=== PATIENT | male | born 1955 | race Caucasian/White ===

== ENCOUNTER 2016-12-21 05:27 | Emergency (ER) | payer OTHER ==
[~2016-12-21] VITALS: Ht 170.2 cm; Wt 89.5 kg
[2016-12-21 05:39] VITALS: Ht 170.2 cm; Wt 89.5 kg
[2016-12-21] MEDS ORDERED: KETOROLAC 30 MG INJ IM STA (06:08)
--- NOTE | 2016-12-21 06:20 | ERD ---
ER Documentation Chief Complaint Date/Time DATE: 12/21/16 TIME: 06:14 Chief Complaint right shoulder pain r/t shoulder hit door,no deformity noted HPI This is a 61-year-old male presenting to the emergency department for shoulder pain after injury today. Patient states while at work, he was opening up a trailer and states the opening was "stuck" and upon forcing door open, he heard an audible pop and felt immediate pain. Now, patient has limited mobility to right shoulder. No elbow or wrist pain. Patient states he had a previous shoulder injury less than 1 year ago in March 2016. Patient is right-hand dominant. ROS All systems reviewed and are negative except as per history of present illness. Medications Home Meds Active Scripts Tramadol HCl (Tramadol HCl) 50 Mg Tablet, 50 MG PO Q4 Y for PAIN, #10 TAB Prov:JEAN BAKER NP 12/21/16 Ibuprofen* (Motrin*) 600 Mg Tab, 600 MG PO Q6, #20 TAB Prov:JEAN BAKER NP 12/21/16 Allergies Allergies: Coded Allergies: No Known Allergy (Unverified , 12/21/16) PMhx/Soc Hx Alcohol Use: No Hx Substance Use: No Hx Tobacco Use: No Smoking Status: Never smoker Physical Exam Vitals Vital Signs Date Time Temp Pulse Resp B/P Pulse Ox O2 Delivery O2 Flow Rate FiO2 12/21/16 05:39 97.6 63 18 177/99 96 Physical Exam Const: Alert, [id number]-[id number]-csyotidej Head: Atraumatic Eyes: Normal Conjunctiva ENT: Normal External Ears, Nose and Mouth. Neck: Full range of motion..~ No meningismus. Resp: Clear to auscultation bilaterally Cardio: Regular rate and rhythm, no murmurs Abd: Soft, non tender, non distended. Normal bowel sounds Skin: No petechiae or rashes Back: No midline or flank tenderness Ext: No obvious deformity. No crepitus with movement. There is pain with passive extension of right shoulder. Unable to actively extend right shoulder. Able to hyperextend right shoulder without difficulty. No limited mobility to right elbow or wrist. Capillary refill less than 3 seconds on right hand. Distal motor and neurovascular sensation fully intact. Neur: Awake and alert Psych: Normal Mood and Affect Results 24 hrs Current Medications Medications (Trade) Dose Ordered Sig/[place] Route PRN Reason Start Time Stop Time Status Last Admin Dose Admin Ketorolac Tromethamine (Toradol) 30 mg ONCE STAT IM 12/21/16 06:08 12/21/16 06:10 DC 12/21/16 06:16 Acetaminophen/ Hydrocodone Bitart ([place] (5/325)) 1 tab ONCE ONCE PO 12/21/16 08:00 12/21/16 08:01 Procedures/MDM [place] [address] Radiology Main Line: [phone] DIAGNOSTIC IMAGING REPORT Patient: CLARI BEASLEY : 1955 Age: 61 Sex: M MR #: [id number] DOS: 12/21/16 0608 Ordering MD: JEAN BAKER NP Location: [facility] Room/Bed: PROCEDURE: XR right Shoulder. CLINICAL INDICATION: Right shoulder pain, injury TECHNIQUE: 3 of the right shoulder are available for review. COMPARISON: None available FINDINGS: Subtle cortical irregularity at the greater tuberosity may reflect enthesopathic change though difficult to exclude nondisplaced fracture. Alignment is normal. Joint spaces are preserved. Soft tissues are grossly unremarkable. IMPRESSION: 1. Subtle cortical irregularity at the greater tuberosity may reflect enthesopathic change though difficult to exclude a nondisplaced fracture in the setting of recent trauma. Consider CT for further evaluation. [place] [address] Radiology Main Line: [phone] DIAGNOSTIC IMAGING REPORT Patient: CLAIR BEASLEY : 1955 Age: 61 Sex: M MR #: [id number] DOS: 12/21/16 0649 Ordering MD: JEAN BAKER NP Location: [facility] Room/Bed: PROCEDURE: CT of the right shoulder CLINICAL INDICATION: Right shoulder pain, trauma TECHNIQUE: Axial images through the right shoulder without IV contrast. Coronal and sagittal reformats. Images were interpreted at an independent PACS workstation. CTDI 50.84 mGy DLP 1229.58 mGy-cm One or more of the following dose reduction techniques were used: Automated exposure control Adjustment of the mA and / or kV according to patient size Use of iterative reconstruction technique. COMPARISON: Right shoulder radiographs performed same day FINDINGS: There is no CT evidence of acute fracture. There is cortical irregularity and cystic change at the greater tuberosity that likely reflects enthesopathic change. There is moderate acromioclavicular osteoarthrosis with subacromial enthesophyte and narrowing of the acromiohumeral distance. There is mild to moderate supraspinatus muscle atrophy. Rotator cuff insertions are not well assessed on CT but there is suspicion for a supraspinatus tendon tear. There is also a nonspecific calcification at the upper bicipital groove (axial 63). The adjacent biceps tendon is diminutive and may be torn but is not well assessed on CT. Limited evaluation of the right lung appears grossly unremarkable. There is no adenopathy. IMPRESSION: 1. The previously questioned cortical irregularity at the greater tuberosity reflects prominent enthesopathic change. No CT evidence of acute fracture para 2. Narrowing of the acromiohumeral distance with subacromial enthesopathy and mild to moderate supraspinatus muscle atrophy. Findings are suspicious for a high-grade supraspinatus tendon tear, suboptimally assessed on CT. Consider MRI for further evaluation as clinically warranted. MDM: 61 year old male presents to ER with shoulder pain after injury today. Patient states while at work, he was opening up a trailer and states the opening was "stuck" and upon forcing door open, he heard an audible pop and felt immediate pain. Patient given Toradol 30 mg IM while in the ED. x-ray right shoulder reviewed by radiologist as subtle cortical irregularity at the greater tuberosity may reflect enthesopathic change though difficult to exclude a nondisplaced fracture in the setting of recent trauma. A CT right upper extremity ordered. Patient has limited active range of motion. Good passive range of motion. Sensation is fully intact. No numbness or tingling. CT right upper extremity shows narrowing of the acromiohumeral distance with subacromial enthesopathy and mild to moderate supraspinatus muscle atrophy. Findings are suspicious for a high-grade supraspinatus tendon tear, suboptimally assessed on CT. Patient placed in ED sling. Remains neurovascularly intact. Patient remains stable. Patient states he is going to his on-site work physician to be evaluated. Patient given printed out copies of x-ray and CT scan examinations. Patient also provided with CD images of xray and CT examinations. Low suspicion for acute dislocation or fracture. Patient likely has rotator cuff tear. Patient is appropriate for outpatient management and will be given prescription for ibuprofen 600 mg #15 and tramadol 50 mg #10. Instructed patient to follow- up with primary care provider or orthopedic physician. Resources provided in discharge paperwork. Return to ED for any high fever, chest pain, difficulty breathing, shortness breath, wheezing, vomiting, diarrhea, abdominal pain or any new or worsening symptoms. Patient verbalizes understanding. All questions answered at discharge. Departure Diagnosis: Primary Impression: Shoulder injury Encounter type: initial encounter Laterality: right Qualified Code: S49.91XA - Shoulder injury, right, initial encounter Additional Impression: Supraspinatus tendon tear Encounter type: initial encounter Laterality: right Qualified Code: S46.811A - Supraspinatus tendon tear, right, initial encounter Condition: Stable JEAN BAKER NP Dec 21, 2016 06:20
--- NOTE | 2016-12-21 06:47 | RADRPT ---
PROCEDURE: XR right Shoulder. CLINICAL INDICATION: Right shoulder pain, injury TECHNIQUE: 3 of the right shoulder are available for review. COMPARISON: None available FINDINGS: Subtle cortical irregularity at the greater tuberosity may reflect enthesopathic change though diffi cult to exclude nondisplaced fracture. Alignment is normal. Joint spaces are preserved. Soft tissues are grossly unremarkable. IMPRESSION: 1. Subtle cortical irregularity at the greater tuberosity may reflect enthesopathic change though di fficult to exclude a nondisplaced fracture in the setting of recent trauma. Consider CT for further evaluation. RPTAT: UU .Inderjit Mathur MD, MD Date Time Electronically viewed and signed by .Inderjit Mathur MD, MD on 12/21/2016 06:46 .K/
--- NOTE | 2016-12-21 07:32 | RADRPT ---
PROCEDURE: CT of the right shoulder CLINICAL INDICATION: Right shoulder pain, trauma TECHNIQUE: Axial images through the right shoulder without IV contrast. Coronal and sagittal ref ormats. Images were interpreted at an independent PACS workstation. CTDI 50.84 mGy DLP 1229.58 mGy-cm One or more of the following dose reduction techniques were used: Automated exposure control Adjustment of the mA and / or kV according to patient size Use of iterative reconstruction technique. COMPARISON: Right shoulder radiographs performed same day FINDINGS: There is no CT evidence of acute fracture. There is cortical irregularity and cystic change at the greater tuberosity that likely reflects enthesopathic change. There is moderate acromioclavicular o steoarthrosis with subacromial enthesophyte and narrowing of the acromiohumeral distance. There is mild to moderate supraspinatus muscle atrophy. Rotator cuff insertions are not well assess ed on CT but there is suspicion for a supraspinatus tendon tear. There is also a nonspecific calcif ication at the upper bicipital groove (axial 63). The adjacent biceps tendon is diminutive and may be torn but is not well assessed on CT. Limited evaluation of the right lung appears grossly unremarkable. There is no adenopathy. IMPRESSION: 1. The previously questioned cortical irregularity at the greater tuberosity reflects prominent ent hesopathic change. No CT evidence of acute fracture para 2. Narrowing of the acromiohumeral distance with subacromial enthesopathy and mild to moderate supr aspinatus muscle atrophy. Findings are suspicious for a high-grade supraspinatus tendon tear, subop timally assessed on CT. Consider MRI for further evaluation as clinically warranted. RPTAT: UU .Inderjit Mathur MD, MD Date Time Electronically viewed and signed by .Inderjit Mathur MD, on 12/21/2016 07:31 .K/
[2016-12-21] MEDS ORDERED: TRAM50TA2 PO (07:50)
[2016-12-21] MEDS ORDERED: IBUP-1542 PO (07:50)
[2016-12-21] MEDS ORDERED: HYDROCODONE/APAP (5/325) TAB PO ONE (08:00)
[2016-12-21 08:44] VITALS: BP 156/74; PULSE 64; RESP 18; TEMP 98.3
== END 2016-12-21 08:44 | disposition home or self-care (01) ==
LOC: FTE 05:27
DX: S49.91XA Unspecified injury of right shoulder and upper arm, initial encounter (principal); S46.811A Strain of other muscles, fascia and tendons at shoulder and upper arm level, right arm, initial encounter; W22.8XXA Striking against or struck by other objects, initial encounter; Y92.9 Unspecified place or not applicable
CPT/HCPCS: 73030; 73200; 96372; 99285; J1885